=== PATIENT | female | born 2000 | race Caucasian/White ===

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

== ENCOUNTER 2020-06-30 23:32 | Emergency (ER) | payer BC ==
[2020-07-01 00:12] VITALS: BP 106/64; PULSE 82; TEMP 98.7; BMI 19.8
[2020-07-01 01:03] LABS: URINE APPEARANCE CLEAR; URINE BILIRUBIN NEGATIVE (NEGATIVE); URINE COLOR YELLOW; URINE GLUCOSE (UA) NEGATIVE (NEGATIVE); URINE KETONE NEGATIVE (NEGATIVE); URINE LEUK ESTERASE NEGATIVE (NEGATIVE); URINE NITRITE NEGATIVE (NEGATIVE); URINE PROTEIN TRACE (NEGATIVE)
[2020-07-01 01:06] LABS: HCG,QUALITATIVE URINE Negative
[2020-07-01] MEDS ORDERED: AZITHROMYCIN 500 MG TABLET PO ONE (01:57)
[2020-07-01] MEDS ORDERED: cefTRIAXone SODIUM 1 GM VIAL ONE (02:00)
[2020-07-01] MEDS ORDERED: AZITHROMYCIN 250 MG TABLET ONE (02:00)
== END 2020-07-01 03:41 | disposition home or self-care (01) ==
LOC: JER 23:32
DX: N89.8 Other specified noninflammatory disorders of vagina (principal); R10.30 Lower abdominal pain, unspecified
CPT/HCPCS: 36415; 81003; 84703; 87086; 87491; 87591; 99284-25

== ENCOUNTER 2021-02-27 20:26 | Emergency (ER) | payer BC ==
[2021-02-27 20:44] VITALS: BP 109/70; PULSE 87; TEMP 99.4; BMI 19.8
== END 2021-02-28 00:03 | disposition home or self-care (01) ==
LOC: FER 20:26
DX: R53.81 Other malaise (principal); J02.9 Acute pharyngitis, unspecified; R59.0 Localized enlarged lymph nodes
CPT/HCPCS: 87880; 99283-25